=== PATIENT | female | born 1960 | race Caucasian/White ===

== ENCOUNTER 2025-06-09 18:04 | Emergency (ER) | payer OTHER, SELFPAY ==
[2025-06-09 18:35] VITALS: BMI 30.5
[2025-06-09] MEDS: ZOFRAN ODT (ORALLY DISINTEGRATING) 4 MG PO (18:45)
[2025-06-09] MEDS: OMNIPAQUE 50 ML PO (18:45)
[2025-06-09] MEDS: PERCOCET 5/325 1 TABLET PO (18:47)
[2025-06-09 18:55] LABS: Hematocrit 43.4 % (37.0-47.0); Hemoglobin 14.6 g/dL (12.0-16.0); Mean Corp Hgb Conc. 33.6 g/dL (33.0-37.0); Mean Corpuscular Volume 89.7 fL (81.0-99.0); Nucleated Red Blood Cells % 0 %; Platelet Count 230 10^3/uL (130-400); Red Cell Dist. Width 13.5 % (11.5-14.5)
[2025-06-09 18:59] LABS: Urine Character Clear (Clear)
[2025-06-09 19:06] LABS: Urine Red Blood Cell 0-2 /HPF (0-2); Urine Squamous Cell 0-2 /LPF (Few)
[2025-06-09 19:15] LABS: ALT (SGPT) 23 U/L (0-35); AST (SGOT) 19 U/L (14-36); Albumin 4.7 g/dl (3.5-5.0); Alkaline Phosphatase 69 U/L (38-126); Blood Urea Nitrogen 15 mg/dl (7-17); Calcium 9.9 mg/dl (8.4-10.2); Carbon Dioxide 25 mmol/L (22-30); Chloride 106 mmol/L (98-107); Estimated Creatinine Clearance 109 ml/min; Glucose 130 mg/dl (70-99); Lipase 60 U/L (23-300); Potassium 4.4 mmol/L (3.5-5.1); Sodium 137 mmol/L (135-145); Total Protein 6.9 g/dl (6.3-8.2); eGFR > 60.00
[2025-06-09 21:51] VITALS: BP 190/94
--- NOTE | 2025-06-09 22:28 | ED.GENMED ---
History of Present Illness
General
Chief Complaint: Abdominal Symptoms
Source: patient
Exam Limitations: none
Time Seen by Provider: 06/09/25 22:08
Nursing documentation reviewed up to this point in time: agreed with
History of Present Illness
History of Present Illness:
65-year-old female with history as noted presents to the ER for evaluation of abdominal pain. Patient reports onset of symptoms a few weeks ago but over the past 24 hours have been consistent and more severe. She reports sharp pain in the left
lower quadrant which does not radiate. Mild nausea but no vomiting. No diarrhea or constipation. She has had some increased belching. She says symptoms seem to be worse after eating. No clear relieving factors noted. She has not had any fevers
or chills. Denies urinary symptoms. She does note that she was recently on a course of Flagyl for BV. She was initially seen in urgent care today but was sent to the ER to be further assessed. She does make note that she has been on Mounjaro for
5 weeks now.
Review of Systems
Review of Systems
All Other Systems: ROS reviewed and negative except as documented in HPI and ROS
Constitutional: Denies fever
Respiratory: Denies trouble breathing
Cardiac: Denies chest pain
ABD/GI: Reports abdominal pain and nausea; Denies vomiting or diarrhea
: Denies dysuria, frequency or flank pain
Musculoskeletal: Denies neck pain or back pain
Neurological: Denies dizzy or headache
Phy Exam
Physical Exam
Physical Exam:
General: Awake, alert, oriented x3; no acute distress
Head: Normocephalic, atraumatic
Eyes: Conjunctiva normal, sclera anicteric
Throat: Airway intact, handling secretions
Neck: Trachea midline, supple without meningismus
Lungs: Breathing comfortably not in distress
Heart: Regular rate
Abd: Soft, non distended, mildly tender left lower quadrant
Neuro: Grossly intact
Skin: no rash in area of concern
Extremities: Warm and well-perfused
Scores
Heart Failure Risk
Heart Failure Risk Score: Not Applicable
Heart Score for Chest Pain Patients
STEMI patient?: Not applicable
Withdrawal Assessment of Alcohol
Withdrawal Assessment Completed?: Not applicable
Course
Orders/Labs/Results
Orders:
Orders
06/09/25 18:40
CT Abd/pel W Iv And Oral Contr Urgent
Comment:
Reason For Exam: left side abd pain
Iohexol [Omnipaque] See Protocol PO NOW STA
Ondansetron Orally Disint [Zofran Odt (Orally Disintegrating)] 4 mg PO NOW STA
Oxycodone/Acetaminophen [Percocet 5/325] 1 tablet PO NOW STA
06/09/25 18:42
Complete Blood Count/With Diff Urgent
Comprehensive Metabolic Panel Urgent
Lipase Urgent
Urinalysis Reflex To Culture Urgent
Date Specimen was Collected: 06/09/25
Time Specimen was Collected: 18:36
Urine Microscopic Reflex Cult Urgent
Ondansetron Orally Disint [Zofran Odt (Orally Disintegrating)] 4 mg .ROUTE .STK-MED ONE
06/09/25 18:43
Iohexol [Omnipaque] 50 ml .ROUTE .STK-MED ONE
Oxycodone/Acetaminophen [Percocet 5/325] 1 tablet .ROUTE .STK-MED ONE
06/09/25 22:27
Amoxicillin 875 mg/Clav 125 mg [Augmentin 875 mg/125 mg] 1 tablet PO NOW STA
Abnormal Lab Results
06/09/25
18:42
MPV 11.1 H fL
(7.4-10.4)
Absolute Neuts (auto) 6.9 H 10^3/uL
(1.4-6.5)
Neutrophils % 76.9 H %
(42.2-75.2)
Lymphocytes % 16.7 L %
(20.5-51.1)
Glucose 130 H mg/dl
(70-99)
Urine Ketones 1+ A
(Negative)
Ur Occult Blood Reflex 1+ A
(Negative)
Urine Bacteria (Reflex) Few A
(Negative)
06/09/25 18:42
06/09/25 18:42
Vital Signs
Initial and Last Documented VS:
Initial Vital Signs
Pulse Resp BP Pulse Ox
117 20 190/94 99
06/09/25 21:51 06/09/25 21:51 06/09/25 21:51 06/09/25 21:51
Last Documented Vital Signs
Pulse Resp BP Pulse Ox
117 20 190/94 99
06/09/25 21:51 06/09/25 21:51 06/09/25 21:51 06/09/25 21:51
MDM/Problems Addressed
Differential Diagnosis Includes:
Diverticulitis, nephrolithiasis, UTI, Mounjaro side effect, constipation
MDM/Problems Addressed:
65-year-old female presents to the ER for evaluation of abdominal pain off and on for the past few weeks but more persistent and intense today. She has been on Mounjaro for the past 5 weeks. Hypertensive and tachycardic in triage. Vital signs
improved by my assessment. Physical exam as noted. Labs were sent off including a CBC which showed no clinically significant abnormalities. Chemistry within acceptable range. Urinalysis no signs of an acute infection. CT abdomen pelvis shows no
acute abnormalities to account for symptoms. Symptoms could be an early mild diverticulitis versus attributable to Mounjaro. Will cover with Augmentin, advised to discontinue Mounjaro. Maintain bland diet. Follow-up with PCP. She says she is
already established with GI and has an upcoming colonoscopy in in a little over a week. Spoke about return precautions all questions answered.
*Radiology
Radiology exam reviewed: radiology read reviewed
*Pulse Oximetry
SaO2: 99
Oxygen Mode of Delivery: Room air
Patient hypoxic: no (99%)
*Critical Care Note
Total Time (30-74mins, 75-104mins- exclusive of procedures): Not Applicable
Data Reviewed
Source: patient
ED Attending Note
-
Portions of this chart may have been created with voice recognition software.� Occasional wrong word or��sound alike� substitutions may have occurred due to the inherent limitations of voice recognition software.
Discharge Plan
Departure
Patient Disposition: Home (Routine Discharge)
Date of Disposition: 06/09/25
Time of Disposition: 22:31
Patient with high blood pressure during this ER visit?: Yes
Discharge Problem:
Abdominal pain
Instructions: Clear Liquid Diet, [place] Diet, Abdominal Pain
Prescriptions:
New
amoxicillin-pot clavulanate 875-125 mg tablet
1 tab PO BID Qty: 14 0RF
Referrals:
Chrystal Khan DO [Family Provider, Family Practice] - Follow up in 5-7 days
Activity Restrictions/Additional Instructions:
Thank you for visiting the Emergency Department at [facility].
1. Please schedule a follow up appointment as directed. Call first thing tomorrow morning to make an appointment.
2. If indicated, please take your medications as instructed and indicated on discharge paperwork.
3. If any of your symptoms do not improve, or persist, or become more severe within 6-12 hours, please return to the emergency department for further care.
4. Please return to the emergency department if you develop a headache, neck pain/stiffness, fever greater than 100.4F, chest pain, shortness of breath, persistent nausea, vomiting, slurred speech, difficulty walking, numbness/tingling, weakness,
signs of infection or any other symptoms that are worrisome to you.
Please call [phone] if you have any questions.
Interventions
Interventions:
*Risk Screen - Suicide Last Done: 06/09/25 18:25
*General Assessment Last Done: 06/09/25 21:48
*Neglect/Abuse Screening Last Done: 06/09/25 18:25
*ED- Fall Risk Assessment Last Done: 06/09/25 21:48
*ED COVID-19 Vaccine History Last Done: 06/09/25 21:48
SG-Tjqhjb-Yoecrycohn Assessment Last Done: 06/09/25 21:48
Discharge Date and Time
Print Language: SLOVENIAN
[2025-06-09] MEDS: AUGMENTIN 875 MG/125 MG 1 TABLET PO (22:31)
[2025-06-09 22:41] VITALS: BP 130/82
== END 2025-06-09 22:43 | disposition home or self-care (01) ==
LOC: EMR 18:04
PROVIDERS: Emergency Medicine; EMERGENCY PHYSICIAN Emergency Medicine; FAMILY PHYSICIAN Family Medicine Addiction Medicine
DX: R10.32 Left lower quadrant pain (principal); I10 Essential (primary) hypertension
CPT/HCPCS: 99284; 74177; 80053; 81003; 81015; 83690; 85025; Q9967